=== PATIENT | male | born 1965 ===

== ENCOUNTER 2021-09-08 15:31 | Inpatient (IN) | payer MEDICAID, OTHER ==
[~2021-09-08] VITALS: Ht 175.3 cm; Wt 66.9 kg
[2021-09-08 16:51] LABS: Basophils % (auto) 0.3 % (0.0-2.0); Eosinophils # (auto) 0 10 ^3/uL (0-0.8); Eosinophils % (auto) 0.3 % (0.0-7.0); Lymphocytes # (auto) 2.3 10 ^3/uL (0.4-5.4); Lymphocytes % (auto) 14.5 % (10.0-50.0); Mean Corpuscular Volume 98.7 fL (80.0-100.0); Monocytes # (auto) 1.2 10 ^3/uL (0-1.3); Neutrophils # (auto) 12.3 10 ^3/uL (1.6-8.6); White Blood Cell 15.9 10^3/uL (4.4-10.8)
[2021-09-08 16:52] LABS: Basophils # (auto) 0 10 ^3/uL (0-0.2); Hematocrit 41.8 % (41.0-53.0); Hemoglobin 13.8 g/dL (13.5-17.5); Mean Corpuscular Hemoglobin 32.7 pg (28.0-32.0); Mean Corpuscular Hgb Conc. 33.1 g/dL (32.0-36.0); Monocytes % (auto) 7.4 % (0.0-12.0); Neutrophils % (auto) 77.5 % (37.0-80.0); Red Blood Cells 4.24 10^6/uL (4.5-5.90); Red Cell Distribution Width 13.7 % (11.8-14.3)
[2021-09-08] MEDS ORDERED: TETANUS-DIPTH-ACEL PERTUSSIS 0.5ML SYR Tdap IM ONE (17:00)
[2021-09-08] MEDS ORDERED: LIDOCAINE W/ EPINEPHRINE 1% 20ML VIAL SC ONE (17:00)
[2021-09-08] MEDS ORDERED: SODIUM CHLORIDE 0.9% 1,000 ML IV ONE ×2 (17:00→19:15)
[2021-09-08 17:05] LABS: Albumin 3.4 g/dL (3.4-5.0); Potassium 3.8 mmol/L (3.5-5.1)
[2021-09-08 17:07] LABS: BUN/Creatinine Ratio 8.8
[2021-09-08 17:08] LABS: Bilirubin, Total 0.3 mg/dL (0.2-1.0); Total Protein 7.4 g/dL (6.4-8.2)
[2021-09-08 17:58] LABS: Amphetamine Screen, Urine NEGATIVE (NEGATIVE); Barbiturate Scree,Urine NEGATIVE (NEGATIVE); Benzodiazephine Screen, Urine NEGATIVE (NEGATIVE); Cannabinoid Screen, Urine NEGATIVE (NEGATIVE); Cocaine Screen, Urine NEGATIVE (NEGATIVE); Opiate Scree,Urine NEGATIVE (NEGATIVE); Phencyclidine Screen, Urine NEGATIVE (NEGATIVE)
[2021-09-08] MEDS ORDERED: InsuLIN R (HUMAN) 100 UNITS in SODIUM CHL 0.9% 99 ML IV SCH (20:30)
[2021-09-08] MEDS ORDERED: SOD CHL 0.9%/ KCL 20MEQ 1,000 ML IV SCH (20:30)
[2021-09-08] MEDS ORDERED: POTASSIUM CHL 20MEQ/50ML 50 ML IV PRN (20:30)
[2021-09-08] MEDS ORDERED: DEXTROSE (50%) 50ML SYRG IV PRN (20:30)
[2021-09-08] MEDS ORDERED: POTASSIUM CHLORIDE 20 MEQ in D5W 5% 1,000 ML IV SCH (21:00)
[2021-09-08] MEDS ORDERED: ceFAZolin 1GM/50ML 50 ML IV ONE (21:00)
[2021-09-08] MEDS: ACCU-CHEK COMFORT CURVE STRIP VI SCH ×2 (21:08→22:38)
[2021-09-08] MEDS ORDERED: ACETAMINOPHEN 325 MG TAB PO ONE (21:45)
[2021-09-08] MEDS ORDERED: D5W 5% 1,000 ML IV ONE (22:15)
[2021-09-08] MEDS ORDERED: ACETAMINOPHEN 325 MG TAB PO PRN (22:45)
[2021-09-08] MEDS ORDERED: DOCUSATE SOD 100 MG CAP PO PRN (22:45)
[2021-09-08] MEDS ORDERED: ONDANSETRON HCL 4 MG/2 ML VIAL IV PRN (22:45)
[2021-09-08] MEDS ORDERED: SODIUM CHLORIDE 0.9% 1,000 ML IV SCH (22:45)
[2021-09-08 23:25] LABS: Calcium 8.1 mg/dL (8.5-10.1); Potassium 4.1 mmol/L (3.5-5.1)
[2021-09-09] MEDS ORDERED: MORPHINE SULFATE INJECTION 2 MG/ML SYRG IV PRN ×2 (01:00)
[2021-09-09] MEDS ORDERED: NITROGLYCERIN 0.4 MG SL TAB SL PRN ×2 (01:00)
[2021-09-09] MEDS: ACCU-CHEK COMFORT CURVE STRIP VI SCH ×8 (01:48→20:00)
[2021-09-09 02:53] LABS: BUN/Creatinine Ratio 11.1; Calcium 8.3 mg/dL (8.5-10.1); Potassium 3.9 mmol/L (3.5-5.1)
[2021-09-09 04:24] LABS: Basophils # (auto) 0 10 ^3/uL (0-0.2); Eosinophils # (auto) 0 10 ^3/uL (0-0.8); Neutrophils # (auto) 8.3 10 ^3/uL (1.6-8.6)
[2021-09-09 04:27] LABS: Basophils % (auto) 0.5 % (0.0-2.0); Hematocrit 32.3 % (41.0-53.0); Lymphocytes # (auto) 0.9 10 ^3/uL (0.4-5.4); Lymphocytes % (auto) 8.6 % (10.0-50.0); Mean Corpuscular Hemoglobin 32.4 pg (28.0-32.0); Mean Corpuscular Hgb Conc. 34.1 g/dL (32.0-36.0); Monocytes # (auto) 1.1 10 ^3/uL (0-1.3); Monocytes % (auto) 10.7 % (0.0-12.0); Neutrophils % (auto) 80.2 % (37.0-80.0); Red Cell Distribution Width 13.3 % (11.8-14.3); White Blood Cell 10.3 10^3/uL (4.4-10.8)
[2021-09-09 04:31] LABS: Potassium 4.4 mmol/L (3.5-5.1)
[2021-09-09 04:37] LABS: Albumin 2.9 g/dL (3.4-5.0); BUN/Creatinine Ratio 13.6; Bilirubin, Total 0.4 mg/dL (0.2-1.0); Calcium 8.7 mg/dL (8.5-10.1); Total Protein 5.8 g/dL (6.4-8.2)
[2021-09-09] MEDS ORDERED: DEXTROSE (50%) 50ML SYRG IV PRN (06:00)
[2021-09-09] MEDS: HEPARIN SODIUM (PORCINE) 5000 UNITS/ML 1ML VIAL SC SCH ×3 (06:44→21:42)
[2021-09-09] MEDS: InsuLIN REG 1unit/0.01ml Soln (100units/ml) SC SCH ×4 (06:45→20:00)
[2021-09-09] MEDS: PIPERACILLIN-TAZOB 3.375GM 100 ML IV SCH ×3 (06:45→21:41)
[2021-09-09] MEDS ORDERED: INSULIN LANTUS (GLARGINE) 1 /0.01ml (100units/ml) SC SCH (07:00)
[2021-09-09] MEDS: MULTIPLE VITAMIN TAB PO SCH (10:00)
[2021-09-09] MEDS: THIAMINE HCL 100 MG TAB PO SCH (10:00)
[2021-09-09] MEDS: ASCORBIC ACID 500 MG TAB PO SCH ×2 (10:00→21:41)
[2021-09-09] MEDS: FOLIC ACID 1 MG TAB PO SCH (10:00)
[2021-09-09] MEDS: ZINC SULFATE 220mg CAP or TAB PO SCH (10:00)
[2021-09-09] MEDS: FAMOTIDINE (10MG/ML) 2ML VL IV SCH ×2 (10:00→21:41)
[2021-09-09 12:37] LABS: INR 1.11 (0.9-1.15); Partial Thromboplastin Time 27.3 sec (23.6-33.0)
[2021-09-09 12:47] LABS: Calcium 8.6 mg/dL (8.5-10.1); Potassium 4.4 mmol/L (3.5-5.1)
[2021-09-09 12:49] LABS: BUN/Creatinine Ratio 20.5
[2021-09-09 13:00] VITALS: BP 113/70
[2021-09-09] MEDS: SODIUM CHLORIDE 0.9% 1,000 ML IV SCH (13:27)
[2021-09-09] MEDS ORDERED: InsuLIN REG 1unit/0.01ml Soln (100units/ml) IV ONE (16:45)
[2021-09-09 16:53] VITALS: BP 119/74
[2021-09-09] MEDS: HYDROcodone-ACET 5/325MG TAB PO PRN (19:53)
[2021-09-09] MEDS: INSULIN LANTUS (GLARGINE) 1 /0.01ml (100units/ml) SC SCH (21:48)
[2021-09-09 22:00] VITALS: BP 118/72
[2021-09-10] MEDS: InsuLIN REG 1unit/0.01ml Soln (100units/ml) SC SCH ×6 (00:15→20:04)
[2021-09-10] MEDS: ACCU-CHEK COMFORT CURVE STRIP VI SCH ×6 (00:15→22:00)
[2021-09-10] MEDS: SODIUM CHLORIDE 0.9% 1,000 ML IV SCH ×4 (01:14→13:29)
[2021-09-10 05:00] VITALS: BP 109/71
[2021-09-10] MEDS: PIPERACILLIN-TAZOB 3.375GM 100 ML IV SCH ×3 (05:51→21:58)
[2021-09-10 05:55] LABS: Basophils # (auto) 0 10 ^3/uL (0-0.2); Basophils % (auto) 0.5 % (0.0-2.0); Eosinophils # (auto) 0 10 ^3/uL (0-0.8); Eosinophils % (auto) 0.4 % (0.0-7.0); Hematocrit 34.6 % (41.0-53.0); Hemoglobin 11.4 g/dL (13.5-17.5); Lymphocytes # (auto) 1.2 10 ^3/uL (0.4-5.4); Lymphocytes % (auto) 17.7 % (10.0-50.0); Mean Corpuscular Hemoglobin 31.6 pg (28.0-32.0); Mean Corpuscular Volume 95.6 fL (80.0-100.0); Monocytes % (auto) 14.7 % (0.0-12.0); Neutrophils # (auto) 4.5 10 ^3/uL (1.6-8.6); Neutrophils % (auto) 66.7 % (37.0-80.0); Nucleated Red Blood Cells % 0.1 %; Red Blood Cells 3.61 10^6/uL (4.5-5.90); Red Cell Distribution Width 13.2 % (11.8-14.3); White Blood Cell 6.7 10^3/uL (4.4-10.8)
[2021-09-10] MEDS: HEPARIN SODIUM (PORCINE) 5000 UNITS/ML 1ML VIAL SC SCH ×3 (05:55→21:53)
[2021-09-10 06:03] LABS: Albumin 2.5 g/dL (3.4-5.0); Calcium 7.9 mg/dL (8.5-10.1)
[2021-09-10 06:09] LABS: BUN/Creatinine Ratio 21.6; Bilirubin, Total 0.3 mg/dL (0.2-1.0); CRP High Sensitivity 1.64 mg/dL (< 0.3); Total Protein 5.6 g/dL (6.4-8.2)
[2021-09-10 06:20] LABS: Thyroid Stimulating Hormone 5.26 uIU/mL (0.358-3.74)
[2021-09-10 06:26] LABS: Ferritin 213.6 ng/mL (10-322); Potassium 2.9 mmol/L (3.5-5.1)
[2021-09-10] MEDS: POTASSIUM CHL 20MEQ/50ML 50 ML IV SCH ×3 (06:30→10:30)
[2021-09-10] MEDS: INSULIN LANTUS (GLARGINE) 1 /0.01ml (100units/ml) SC SCH ×2 (06:38→21:52)
[2021-09-10 08:00] VITALS: BP 116/69
[2021-09-10] MEDS: ASCORBIC ACID 500 MG TAB PO SCH ×2 (08:23→21:54)
[2021-09-10] MEDS: THIAMINE HCL 100 MG TAB PO SCH (08:23)
[2021-09-10] MEDS: FAMOTIDINE (10MG/ML) 2ML VL IV SCH ×2 (08:23→21:56)
[2021-09-10] MEDS: FOLIC ACID 1 MG TAB PO SCH (08:23)
[2021-09-10] MEDS: MULTIPLE VITAMIN TAB PO SCH (08:23)
[2021-09-10] MEDS: ZINC SULFATE 220mg CAP or TAB PO SCH (08:23)
[2021-09-10 13:00] VITALS: BP 106/66
[2021-09-10 17:49] VITALS: BP 118/70
[2021-09-10] MEDS: HYDROcodone-ACET 5/325MG TAB PO PRN (20:59)
[2021-09-10 22:00] VITALS: BP 119/82
[2021-09-11] MEDS: SODIUM CHLORIDE 0.9% 1,000 ML IV SCH ×3 (02:33→11:37)
[2021-09-11] MEDS: InsuLIN REG 1unit/0.01ml Soln (100units/ml) SC SCH ×2 (04:00)
[2021-09-11 05:29] VITALS: BP 91/61
[2021-09-11 05:44] LABS: Basophils # (auto) 0 10 ^3/uL (0-0.2); Eosinophils # (auto) 0 10 ^3/uL (0-0.8); Monocytes # (auto) 0.9 10 ^3/uL (0-1.3)
[2021-09-11 05:47] LABS: Basophils % (auto) 0.3 % (0.0-2.0); Eosinophils % (auto) 0.4 % (0.0-7.0); Hematocrit 32.7 % (41.0-53.0); Hemoglobin 11.3 g/dL (13.5-17.5); Lymphocytes # (auto) 1.1 10 ^3/uL (0.4-5.4); Lymphocytes % (auto) 16.3 % (10.0-50.0); Mean Corpuscular Hemoglobin 33.1 pg (28.0-32.0); Mean Corpuscular Hgb Conc. 34.5 g/dL (32.0-36.0); Mean Corpuscular Volume 95.8 fL (80.0-100.0); Monocytes % (auto) 13.5 % (0.0-12.0); Neutrophils # (auto) 4.8 10 ^3/uL (1.6-8.6); Neutrophils % (auto) 69.5 % (37.0-80.0); Nucleated Red Blood Cells % 0.1 %; Red Blood Cells 3.41 10^6/uL (4.5-5.90); Red Cell Distribution Width 13.4 % (11.8-14.3); White Blood Cell 6.9 10^3/uL (4.4-10.8)
[2021-09-11 06:03] LABS: Albumin 2.3 g/dL (3.4-5.0); BUN/Creatinine Ratio 13.5; Potassium 3.9 mmol/L (3.5-5.1)
[2021-09-11 06:06] LABS: Bilirubin, Total 0.2 mg/dL (0.2-1.0); Total Protein 5.2 g/dL (6.4-8.2)
[2021-09-11] MEDS: PIPERACILLIN-TAZOB 3.375GM 100 ML IV SCH ×2 (06:21→13:47)
[2021-09-11] MEDS: HEPARIN SODIUM (PORCINE) 5000 UNITS/ML 1ML VIAL SC SCH ×2 (06:22→13:36)
[2021-09-11] MEDS: ACCU-CHEK COMFORT CURVE STRIP VI SCH ×2 (06:42→11:37)
[2021-09-11] MEDS: INSULIN LANTUS (GLARGINE) 1 /0.01ml (100units/ml) SC SCH (06:42)
[2021-09-11 09:00] VITALS: BP 121/79
[2021-09-11] MEDS: MULTIPLE VITAMIN TAB PO SCH (09:14)
[2021-09-11] MEDS: ASCORBIC ACID 500 MG TAB PO SCH (09:14)
[2021-09-11] MEDS: ZINC SULFATE 220mg CAP or TAB PO SCH (09:14)
[2021-09-11] MEDS: THIAMINE HCL 100 MG TAB PO SCH (09:14)
[2021-09-11] MEDS: FAMOTIDINE (10MG/ML) 2ML VL IV SCH (09:14)
[2021-09-11] MEDS: FOLIC ACID 1 MG TAB PO SCH (09:14)
[2021-09-11 10:23] LABS: Free T4 (Free Thyroxine) 0.95 ng/dL (0.89-1.76)
[2021-09-11 10:24] LABS: Folate (Folic Acid) 14.81 ng/mL (5.38-24)
[2021-09-11] MEDS ORDERED: InsuLIN REG 1unit/0.01ml Soln (100units/ml) SC SCH (11:30)
[2021-09-11 13:00] VITALS: BP 104/65
[2021-09-11] MEDS: HYDROcodone-ACET 5/325MG TAB PO PRN (15:19)
== END 2021-09-11 18:02 | disposition home or self-care (01) | DRG 871 ==
LOC: EDBD 15:31 → ER 15:31 → OVERFLOW 23:53 → EDBD 23:53 → WEST WING 09-09 10:53 → TELE-WESTW 09-10 19:18
PROVIDERS: ADMIT Nurse Practitioner Family; ATTEND Family Medicine
PROC: 0HQ1XZZ Repair Face Skin, External Approach (ICD-10-PCS; principal; 2021-09-08)
DX: A41.9 Sepsis, unspecified organism (principal); E11.10 Type 2 diabetes mellitus with ketoacidosis without coma; E87.1 Hypo-osmolality and hyponatremia; F10.120 Alcohol abuse with intoxication, uncomplicated; S01.01XA Laceration without foreign body of scalp, initial encounter; D75.839 Thrombocytosis, unspecified; Y90.8 Blood alcohol level of 240 mg/100 ml or more; Z20.822 Contact with and (suspected) exposure to COVID-19; S10.0XXA Contusion of throat, initial encounter; Z71.41 Alcohol abuse counseling and surveillance of alcoholic; Z91.19 Patient's noncompliance with other medical treatment and regimen; Y92.410 Unspecified street and highway as the place of occurrence of the external cause; V49.9XXA Car occupant (driver) (passenger) injured in unspecified traffic accident, initial encounter; Y99.8 Other external cause status; Y93.89 Activity, other specified
CPT/HCPCS: 12013; 36415; 70450; 70490; 71045; 72125; 80048; 80053; 80307; 80320; 82010; 82607; 82728; 82746; 82962; 83036; 83540; 83550; 83615; 84439; 84443; 85025; 85610; 85652; 85730; 86141; 87040; 87426; 90471; 90715; 96361; 96365; G0378; J0690; J1815; J2543; J3490